=== PATIENT | male | born 1950 | race Caucasian/White ===

== ENCOUNTER 2016-11-04 15:20 | Inpatient (IN) | payer OTHER ==
[~2016-11-04] VITALS: Ht 190.5 cm; Wt 131.1 kg
[~2016-11-04 15:20] MED LIST: AMLO10TA2 PO; BETH5TAB PO; BUPR100T8 PO; BUPR200T PO; CEPH500C PO; CHOL10003 PO; CYAN10005 PO; CYCL10TA2 PO; DIVA500T9 PO; DULO60CA6 PO; FURO20TA3 PO; HYDR-2758 PO; HYDR-2869 PO; IBUP-1060 PO; LIDO30CR TP; LISI40TA PO; PROP10TA PO; SIMV40TA3 PO; TERA10CA3 PO
[2016-11-04 17:30] VITALS: BP 160/106
[2016-11-04 17:45] VITALS: BP 164/109
[2016-11-04] MEDS ORDERED: traMADol 50 MG TABLET PO PRN (18:45)
[2016-11-04] MEDS ORDERED: ACETAMINOPHEN 325 MG TABLET. PO PRN (18:45)
[2016-11-04] MEDS ORDERED: hydrALAZINE 20 MG/ML VIAL. IVP PRN (18:45)
[2016-11-04] MEDS ORDERED: ONDANSETRON PF 4 MG/2 ML VIAL. IV PRN (18:45)
[2016-11-04] MEDS ORDERED: MORPHINE SULFATE 2 MG/ML DISP.SYRIN. IV PRN (18:45)
--- NOTE | 2016-11-04 18:51 | PDOC1 ---
History and Physical Date of Admission Date of Admission 11/04/16 Identification/Chief Complaint Chief Complaint hyponatremia Problems: Source Source: Patient History of Present Illness History of Present Illness 66yo M, was sent from [facility] for [place]onatremia since [place]. [place] did[place] any records with him. [facility] he started to take chlorthalidone 2 weeks ago, the clinic monitored his Na and found it was 131, dropped to 126, and today was 121. Pt doesnot eat salt in regular food. He feels fine, denies fever, chills, sob, chest martinez, cough ,N/V, diarrhea. + chronic constipation. H/o BPH with difficulty urination, fu with uro ,last time clinic visiting was this year. Past Medical History Cardiovascular: HTN, Hyperlipidemia Pulmonary: No pertinent hx CENTRAL NERVOUS SYSTEM: Other GI: Other Heme/Onc: No pertinent hx, Other Hepatobiliary: No pertinent hx Psych: No pertinent hx Rheumatologic: No pertinent hx Infectious disease: No pertinent hx Renal/: No pertinent hx Endocrine: No pertinent hx Past Surgical History Past Surgical History 5 back sx Past Surgical History: Total knee replacement, Other Family History Family History: Cancer, Other Social History Smoke: <1 pack per day ALCOHOL: none Drugs: None Allergies Allergies Allergies Coded Allergies Type Severity Reaction Last Updated Verified No Known Drug Allergies 08/22/15 No ROS Review of System CONSTITUTIONAL: No fever or chills EYES: No recent changes SKIN: No rash or itching CARDIOVASCULAR: No chest pain, syncope, palpitations, or edema RESPIRATORY: No SOB or cough GASTROINTESTINAL: No nausea, vomiting or abdominal pain NEUROLOGICAL: No headaches or weakness ENDOCRINE: No cold or heat intolerance GENITOURINARY: No urgency or frequency of urination MUSCULOSKELETAL: No back pain or joint pain LYMPHATICS: No enlarged lymph nodes PSYCHIATRIC: No anxiety or depression Physical Exam Physical Exam GEN.: No apparent distress. Alert and oriented. HEENT: Head is normocephalic, atraumatic NECK: Supple. LUNGS: Clear to auscultation. HEART: RRR, S1, S2 present. Peripheral pulses intact ABDOMEN: Soft, nontender. Positive bowel sounds. EXTREMITIES: Without any cyanosis. NEUROLOGIC: Normal speech, normal tone PSYCHIATRIC: Normal affect, normal mood. SKIN: No ulcerations Vitals Vitals Vital Signs Date Time Temp Pulse Resp B/P (MAP) Pulse Ox O2 Delivery O2 Flow Rate FiO2 11/04/16 17:45 82 164/109 (127) 11/04/16 17:30 95.9 20 97 Room Air 95.9 VTE Prophylaxis Ordered VTE Prophylaxis Devices: Yes VTE Pharmacological Prophylaxi: Yes Assessment/Plan Assessment/Plan hyponatremia, 2/2 chlorthalidone likely, with low Salt intake PTSD CHRONIC bl upper ext tremors htn BPH h/o iron deficient anemia tobaccoism chronic back pain s/p 5 sx PAFIB not on meds obesity plan: renal consult ivf NS now labs now,. ROUtine CXR, EKG need to verify home meds, hold chlorthalidone dvt ppx PT doesnot want nicotine patch for now, which he takes at home and smokes too PERLITA VELA MD Nov 04, 2016 18:50
[2016-11-04 19:00] VITALS: BP 138/86
[2016-11-04] MEDS ORDERED: AMIT10TA PO (19:11)
[2016-11-04] MEDS ORDERED: HYDROcodone/APAP 5/325MG 1 TAB TABLET PO PRN (19:15)
[2016-11-04] MEDS ORDERED: LISI-334 PO (19:17)
[2016-11-04] MEDS ORDERED: BUPR150T20 PO (19:17)
[2016-11-04] MEDS ORDERED: FOLI1TAB16 PO (19:18)
[2016-11-04] MEDS ORDERED: METH-37 PO (19:18)
[2016-11-04] MEDS ORDERED: NIFE60TA16 PO (19:20)
[2016-11-04] MEDS ORDERED: NICO1PAT25 TP (19:21)
[2016-11-04] MEDS ORDERED: TAMS0.4C2 PO (19:22)
[2016-11-04 19:43] VITALS: BP 164/109
[2016-11-04] MEDS: IV NORMAL SALINE 1000ML BAG 1,000 ML IV SCH (20:40)
[2016-11-04] MEDS: METHOCARBAMOL 500 MG TABLET PO SCH (20:41)
[2016-11-04] MEDS: SIMVASTATIN 40 MG TABLET. PO SCH (20:41)
[2016-11-04] MEDS: NICOTINE 14MG PATCH. TD SCH (20:41)
[2016-11-04] MEDS: LISINOPRIL 20 MG TABLET PO SCH (20:42)
[2016-11-04] MEDS: AMITRIPTYLINE HCL 10 MG TABLET. PO SCH (20:42)
[2016-11-04] MEDS: CYCLOBENZAPRINE 10 MG TABLET. PO SCH (20:44)
[2016-11-04] MEDS ORDERED: TERAZOSIN 5 MG CAPSULE. PO SCH (21:00)
[2016-11-04 21:03] LABS: BASO # 0.1 x10^3/uL (0.0-0.2); BASO % 1 % (0-3); EOS % 9 % (0-3); HEMATOCRIT 33.8 % (39.0-53.0); HEMOGLOBIN 11.6 g/dL (13.0-17.5); LYMPH # 1.2 x10^3/uL (1.0-4.8); LYMPH % 13 % (24-48); MEAN CORPUSCULAR HEMOGLOBIN 33 pg (25-35); MEAN CORPUSCULAR HGB CONC 34 g/dL (31-37); MEAN CORPUSCULAR VOLUME 95 fL (79-100); MONO % 14 % (0-9); NEUT % 63 % (31-73); PLATELET COUNT 197 x10^3/uL (140-400); RED BLOOD COUNT 3.56 x10^6/uL (4.30-5.70); WHITE BLOOD COUNT 9.1 x10^3/uL (4.0-11.0)
[2016-11-04 21:14] LABS: GFR 74.5; POTASSIUM 3.5 mmol/L (3.5-5.1)
[2016-11-04] MEDS ORDERED: HYDR-2762 PO (21:19)
[2016-11-04 21:58] LABS: BARBITURATES NEG (NEG); BENZODIAZEPINES NEG (NEG); CANNABINOIDS NEG (NEG); COCAINE NEG (NEG); METHADONE NEG (NEG); OPIATES POS (NEG); PHENCYCLIDINE NEG (NEG)
--- NOTE | 2016-11-04 22:55 | EKG ---
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
[2016-11-04 23:00] VITALS: BP 140/84
--- NOTE | 2016-11-05 02:35 | ACF ---
Admission Forms Criteria HYPONATREMIA; HYPERNATREMIA; HYPOKALEMIA; HYPERKALEMIA; HYPOCALCEMIA; HYPERCALCEMIA Clinical Indications for Inpatient Care (Place 'X' for any and all applicable criteria): Ongoing inpatient care may be indicated for ANY ONE of the following [G](1)(2)(3 )(5): [X]I. Hyponatremia with ANY ONE of the following: [X]a) Sodium less than 130 mEq/L (mmol/L) (new) (6)(22) [ ]b) Sodium less than 135 mEq/L (mmol/L) with ANY ONE of the following: [ ]i) Severe medical etiology requiring inpatient management (eg, heart failure, hypovolemia) [ ]ii) Altered mental status [ ]iii) Seizures [ ]II. Hypernatremia with ANY ONE of the following: [ ]a) Sodium greater than 155 mEq/L (mmol/L) [ ]b) Sodium greater than 150 mEq/L (mmol/L) with ANY ONE of the following: [ ] i) Altered mental status [ ]ii) Seizures [ ]iii) Severe medical etiology (eg, hypovolemia, diabetes insipidus) [ ]iv) Severe weakness [ ]v) Severe medical etiology (eg, hemolysis, infection, drug overdose) [ ]III. Hypokalemia with ANY ONE of the following: [ ]a) Potassium less than 2.5 mEq/L (mmol/L) despite outpatient and emergency treatment [ ]b) Potassium less than 3.0 mEq/L (mmol/L) with ANY ONE of the following: [ ]i) Weakness [ ]ii) Cardiac abnormality (eg, arrhythmia, conduction disturbance) [ ]iii) Cardiac ischemia [ ]iv) Ileus [ ]v) Ongoing medical cause requiring inpatient management. ( e.g., acute renal wasting, SIADH) [ ]vi) Other severe symptoms [ ] IV. Hyperkalemia with ANY ONE of the following: [ ]a) Potassium greater than 6.5 mEq/L (mmol/L) [ ]b) Potassium greater than 5 mEq/L (mmol/L) with ANY ONE of the following: [ ]i) Severe ECG findings [H] [ ]ii) Acute worsening of renal failure (creatinine greater than 2.5 mg/dL (221 micromoles/L) or significant elevation for age and size) [ ] V. Hypocalcemia with ANY ONE of the following: [ ]a) Calcium less than 7 mg/dL (1.75 mmol/L) despite outpatient and emergency treatment(19) [ ]b) Calcium less than 8 mg/dL (2 mmol/L) with significant symptoms or findings; examples include: [ ]i) Cardiac abnormality (eg, arrhythmia or conduction disturbance) [ ]ii) Altered mental status [ ]iii) Seizures [ ]iv) Breathing difficulty [ ]v) Muscle spasms [ ]. Hypercalcemia with ANY ONE of the following: [ ]a) Calcium greater than 14 mg/dL (3.5 mmol/L) [ ]b) Calcium greater than 12 mg/dL (3 mmol/L) with ANY ONE of the following: [ ]i) Significant dehydration or hypovolemia as indicated by ANY ONE of the following(2): [ ]1. Clinically significant dehydration as indicated by ANY ONE of the following: [ ]A. Acute loss of weight from baseline (5% of body weight in adults, 9% in pediatric patients) [ ]B. Hemodynamic instability [ ]C. Acute renal failure [ ]D. Serum sodium greater than 150 mEq/L (mmol/L) [ ]2) Dehydration that is persistent indicated by ALL of the following: [ ]A. Oral rehydration therapy not tolerated or insufficient to adequately correct dehydration [ ]B. Appropriate intravenous treatment (eg, fluids ) does not readily correct dehydration ie, after 12 to 24 hours of treatment) [ ]ii) Significant symptoms or findings; examples include: [ ]1) Altered mental status [ ]2) Cardiac abnormality (eg, arrhythmia, conduction disturbance) [ ]3) Cardiac abnormality (eg, arrhythmia, conduction disturbance) The original [employer] content created by [employer] has been revised. The portions of the content which have been revised are identified through the use of italic text or in bold, and [facility] has neither reviewed nor approved the modified material. All other unmodified content is copyright [facility] [employer] Please see references footnoted in the original [facility] [employer] edition 2016 Admission Criteria Met?: Yes SILVANA MORALES Nov 05, 2016 02:35
[2016-11-05 03:23] VITALS: BP 151/100
[2016-11-05] MEDS: IV NORMAL SALINE 1000ML BAG 1,000 ML IV SCH ×2 (06:40→15:26)
[2016-11-05 07:00] VITALS: BP 155/112
[2016-11-05 07:30] LABS: BASO # 0.1 x10^3/uL (0.0-0.2); BASO % 1 % (0-3); EOS % 8 % (0-3); HEMATOCRIT 34.7 % (39.0-53.0); HEMOGLOBIN 11.9 g/dL (13.0-17.5); LYMPH % 11 % (24-48); MEAN CORPUSCULAR HEMOGLOBIN 33 pg (25-35); MEAN CORPUSCULAR HGB CONC 34 g/dL (31-37); MEAN CORPUSCULAR VOLUME 95 fL (79-100); MONO % 15 % (0-9); NEUT % 65 % (31-73); PLATELET COUNT 187 x10^3/uL (140-400); RED BLOOD COUNT 3.66 x10^6/uL (4.30-5.70); RED CELL DISTRIBUTION WIDTH 13.8 % (11.5-14.5); WHITE BLOOD COUNT 8.4 x10^3/uL (4.0-11.0)
[2016-11-05 07:41] LABS: CALCIUM 9.3 mg/dL (8.5-10.1); CREATININE 0.9 mg/dL (0.7-1.3); GFR 84.2; POTASSIUM 3.5 mmol/L (3.5-5.1)
--- NOTE | 2016-11-05 08:23 | RAD ---
Portable chest, 11/04/2016: History: Hyponatremia, hypertension Comparison is made to a study from 12/05/2007. There is a lesser depth of inspiration. The heart size and pulmonary vascularity are normal. No pulmonary consolidation is seen. There is no evidence of pleural fluid. IMPRESSION: No acute cardiopulmonary abnormality is detected.
[2016-11-05] MEDS: CYCLOBENZAPRINE 10 MG TABLET. PO SCH ×3 (08:30→21:16)
[2016-11-05] MEDS: DULoxetine HCL 30 MG CAPSULE.DR PO SCH (08:31)
[2016-11-05] MEDS: BETHANECHOL CHLORIDE 10 MG TABLET. PO SCH ×3 (08:32→15:26)
[2016-11-05] MEDS: METHOCARBAMOL 500 MG TABLET PO SCH ×3 (08:32→21:16)
[2016-11-05] MEDS: CYANOCOBALAMIN (VITAMIN B-12) 1,000 MCG TABLET. PO SCH (08:32)
[2016-11-05] MEDS: DIVALPROEX DELAYED RELEASE 500 MG TABLET.DR. PO SCH (08:32)
[2016-11-05] MEDS: FOLIC ACID 1 MG TABLET. PO SCH (08:32)
[2016-11-05] MEDS: CHOLECALCIFEROL (VITAMIN D3) 1,000 UNIT TABLET PO SCH (08:32)
[2016-11-05] MEDS: TAMSULOSIN 0.4 MG CAP.ER.24H. PO SCH (08:32)
[2016-11-05] MEDS: NICOTINE 14MG PATCH. TD SCH (08:33)
[2016-11-05] MEDS: ENOXAPARIN 40 MG/0.4 ML SYRINGE. SQ SCH (08:33)
[2016-11-05] MEDS: LISINOPRIL 20 MG TABLET PO SCH ×2 (08:43→21:16)
[2016-11-05] MEDS: HYDROcodone/APAP 7.5/325MG 1 TAB TABLET PO PRN ×2 (08:43→21:17)
[2016-11-05] MEDS: amLODIPine BESYLATE 10 MG TABLET PO SCH (08:43)
[2016-11-05] MEDS: PROPRANOLOL 10 MG TABLET. PO SCH (08:44)
[2016-11-05] MEDS ORDERED: FUROSEMIDE 20 MG TABLET PO SCH (09:00)
--- NOTE | 2016-11-05 10:37 | PDOC ---
PROGRESS NOTES Chief Complaint Chief Complaint [facility] ASSESSMENT AND PLAN: 1. Hyponatremia: 2/2 chlorthalidone that was recently started. continues to improve, but not close to normal range yet. cont IVF 2. HTN : well controlled on home lisinopril, norvasc, hydralazine 3. pAfib: on dilt., continue. no OAC on O/P basis (?) 4. Tremors: ? familial. on propranolol 5. Anemia: hx iron deficiency, currently on folate. stable. F/U with PCP 6. BPH: cont home regimen 7. Chronic LBP: cont home regimen 8. PTSD: continue home meds 9. tobaccoism: declines patch. obtain CT for annual lung CA screening 10. obesity (BMI3 36): nutrition consult History of Present Illness History of Present Illness no c/o. feels "normal" Vitals Vitals Vital Signs Date Time Temp Pulse Resp B/P (MAP) Pulse Ox O2 Delivery O2 Flow Rate FiO2 11/05/16 08:44 88 155/112 11/05/16 08:43 98 Room Air 11/05/16 07:00 97.8 20 97.8 Physical Exam Lungs: Clear Labs LABS Laboratory Tests Test 11/04/16 20:30 11/04/16 21:00 11/05/16 07:05 White Blood Count 9.1 x10^3/uL (4.0-11.0) 8.4 x10^3/uL (4.0-11.0) Red Blood Count 3.56 x10^6/uL (4.30-5.70) 3.66 x10^6/uL (4.30-5.70) Hemoglobin 11.6 g/dL (13.0-17.5) 11.9 g/dL (13.0-17.5) Hematocrit 33.8 % (39.0-53.0) 34.7 % (39.0-53.0) Mean Corpuscular Volume 95 fL (79-100) 95 fL (79-100) Mean Corpuscular Hemoglobin 33 pg (25-35) 33 pg (25-35) Mean Corpuscular Hemoglobin Concent 34 g/dL (31-37) 34 g/dL (31-37) Red Cell Distribution Width 14.0 % (11.5-14.5) 13.8 % (11.5-14.5) Platelet Count 197 x10^3/uL (140-400) 187 x10^3/uL (140-400) Neutrophils (%) (Auto) 63 % (31-73) 65 % (31-73) Lymphocytes (%) (Auto) 13 % (24-48) 11 % (24-48) Monocytes (%) (Auto) 14 % (0-9) 15 % (0-9) Eosinophils (%) (Auto) 9 % (0-3) 8 % (0-3) Basophils (%) (Auto) 1 % (0-3) 1 % (0-3) Neutrophils # (Auto) 5.8 x10^3uL (1.8-7.7) 5.4 x10^3uL (1.8-7.7) Lymphocytes # (Auto) 1.2 x10^3/uL (1.0-4.8) 1.0 x10^3/uL (1.0-4.8) Monocytes # (Auto) 1.3 x10^3/uL (0.0-1.1) 1.3 x10^3/uL (0.0-1.1) Eosinophils # (Auto) 0.8 x10^3/uL (0.0-0.7) 0.7 x10^3/uL (0.0-0.7) Basophils # (Auto) 0.1 x10^3/uL (0.0-0.2) 0.1 x10^3/uL (0.0-0.2) Sodium Level 127 mmol/L (136-145) 129 mmol/L (136-145) Potassium Level 3.5 mmol/L (3.5-5.1) 3.5 mmol/L (3.5-5.1) Chloride Level 91 mmol/L (98-107) 93 mmol/L (98-107) Carbon Dioxide Level 31 mmol/L (21-32) 26 mmol/L (21-32) Anion Gap 5 (6-14) 10 (6-14) Blood Urea Nitrogen 16 mg/dL (8-26) 12 mg/dL (8-26) Creatinine 1.0 mg/dL (0.7-1.3) 0.9 mg/dL (0.7-1.3) Estimated GFR (Cockcroft-Gault) 74.5 84.2 Glucose Level 100 mg/dL (70-99) 103 mg/dL (70-99) Calcium Level 9.0 mg/dL (8.5-10.1) 9.3 mg/dL (8.5-10.1) Urine Opiates Screen Pos (NEG) Urine Methadone Screen Neg (NEG) Urine Barbiturates Neg (NEG) Urine Phencyclidine Screen Neg (NEG) Urine Amphetamine/Methamphetamine Neg (NEG) Urine Benzodiazepines Screen Neg (NEG) Urine Cocaine Screen Neg (NEG) Urine Cannabinoids Screen Neg (NEG) Urine Ethyl Alcohol Neg (NEG) BLAZE OQUENDO MD Nov 05, 2016 10:37
[2016-11-05 11:00] VITALS: BP 128/84
[2016-11-05 15:21] VITALS: BP 116/69
[2016-11-05] MEDS: DOCUSATE SODIUM 100 MG CAPSULE. PO PRN (18:38)
[2016-11-05 19:25] VITALS: BP 143/82
[2016-11-05] MEDS: AMITRIPTYLINE HCL 10 MG TABLET. PO SCH (21:16)
[2016-11-05] MEDS: SIMVASTATIN 40 MG TABLET. PO SCH (21:16)
[2016-11-05 23:10] VITALS: BP 125/74
[2016-11-06] MEDS: IV NORMAL SALINE 1000ML BAG 1,000 ML IV SCH ×2 (02:00→11:28)
[2016-11-06 03:04] VITALS: BP 154/92
[2016-11-06 05:15] LABS: BASO # 0.1 x10^3/uL (0.0-0.2); BASO % 1 % (0-3); EOS % 9 % (0-3); HEMATOCRIT 30.1 % (39.0-53.0); HEMOGLOBIN 10.5 g/dL (13.0-17.5); LYMPH # 1.1 x10^3/uL (1.0-4.8); LYMPH % 16 % (24-48); MEAN CORPUSCULAR HEMOGLOBIN 33 pg (25-35); MEAN CORPUSCULAR HGB CONC 35 g/dL (31-37); MEAN CORPUSCULAR VOLUME 93 fL (79-100); MONO % 16 % (0-9); NEUT % 59 % (31-73); PLATELET COUNT 175 x10^3/uL (140-400); RED BLOOD COUNT 3.23 x10^6/uL (4.30-5.70); RED CELL DISTRIBUTION WIDTH 13.8 % (11.5-14.5)
[2016-11-06 05:21] LABS: CALCIUM 8.6 mg/dL (8.5-10.1); CREATININE 0.8 mg/dL (0.7-1.3); GFR 96.4
[2016-11-06 07:00] VITALS: BP 158/91
[2016-11-06] MEDS: HYDROcodone/APAP 7.5/325MG 1 TAB TABLET PO PRN (08:11)
[2016-11-06] MEDS: PROPRANOLOL 10 MG TABLET. PO SCH (08:11)
[2016-11-06] MEDS: DULoxetine HCL 30 MG CAPSULE.DR PO SCH (08:12)
[2016-11-06] MEDS: CYCLOBENZAPRINE 10 MG TABLET. PO SCH ×2 (08:12→14:38)
[2016-11-06] MEDS: METHOCARBAMOL 500 MG TABLET PO SCH ×2 (08:12→14:38)
[2016-11-06] MEDS: CHOLECALCIFEROL (VITAMIN D3) 1,000 UNIT TABLET PO SCH (08:12)
[2016-11-06] MEDS: BETHANECHOL CHLORIDE 10 MG TABLET. PO SCH ×2 (08:13→11:27)
[2016-11-06] MEDS: amLODIPine BESYLATE 10 MG TABLET PO SCH (08:13)
[2016-11-06] MEDS: LISINOPRIL 20 MG TABLET PO SCH (08:13)
[2016-11-06] MEDS: FOLIC ACID 1 MG TABLET. PO SCH (08:13)
[2016-11-06] MEDS: TAMSULOSIN 0.4 MG CAP.ER.24H. PO SCH (08:13)
[2016-11-06] MEDS: DIVALPROEX DELAYED RELEASE 500 MG TABLET.DR. PO SCH (08:14)
[2016-11-06] MEDS: NICOTINE 14MG PATCH. TD SCH (08:14)
[2016-11-06] MEDS: CYANOCOBALAMIN (VITAMIN B-12) 1,000 MCG TABLET. PO SCH (08:14)
[2016-11-06] MEDS: ENOXAPARIN 40 MG/0.4 ML SYRINGE. SQ SCH (08:15)
[2016-11-06 11:00] VITALS: BP 125/79
--- NOTE | 2016-11-06 12:06 | RAD ---
Indication chest pain. Hyponatremia. Noncontrast images through the chest were obtained. No prior CT imaging of the chest is available. Imaging through the upper abdomen demonstrates a low-density 2.6 cm mass associated with the right kidney most compatible with a cyst. There is a low-density 2 cm mass associated with the right adrenal gland. Hounsfield unit numbers are less than 10 and it is most consistent with a benign adenoma. No acute or definite significant finding in the upper abdomen is seen. There are significant degenerative changes in the upper lumbar spine. There are several right rib fractures most of which are probably old. Clinical correlation advised. There is some coronary artery calcification. A few mediastinal lymph nodes are noted. These are very doubtful clinical significance. There is no significant hilar adenopathy. There are groundglass opacities in the upper lobes left more so than right. The etiology is unclear. Some of this could be chronic. Hypersensitivity phenomenon associated with these groundglass opacities is not excluded. Underlying infection is not excluded. A dominant soft tissue mass in either lung is not seen. IMPRESSION: No dominant soft tissue mass seen in either lung. Groundglass opacities, nonspecific, in the upper lobes left greater than right. PQRS Compliance Statement: One or more of the following individualized dose reduction techniques were utilized for this examination: 1. Automated exposure control 2. Adjustment of the mA and/or kV according to patient size 3. Use of iterative reconstruction technique
--- NOTE | 2016-11-06 13:56 | PDOC3 ---
Discharge Summary [facility] Date of Admission: Nov 04, 2016 Discharge Date: Nov 06, 2016 Admitting Diagnosis hyponatremia, 2/2 chlorthalidone likely, with low Salt intake PTSD CHRONIC bl upper ext tremors post back sx htn BPH h/o iron deficient anemia tobaccoism chronic back pain s/p 5 sx PAFIB not on meds obesity Problems: Brief Hospital Course 66yo M, was sent from [place] [facility] for [place]at[place] since [place] has no bed for him. [place] did[place] send any records with him. [facility], he started to take chlorthalidone 2 weeks ago, the clinic monitored his Na and found it was 131, dropped to 126, and today was 121. Pt doesnot eat salt in regular food. He feels fine, denies fever, chills, sob, chest martinez, cough ,N/V, diarrhea. + chronic constipation. H/o BPH with difficulty urination, fu with uro ,last time clinic visiting was this year. repeated BMP here 127, today [address] chest not significant. dc home wo chlorthalidone dc time 35min. GEN.: No apparent distress. Alert and oriented. HEENT: Head is normocephalic, atraumatic NECK: Supple. LUNGS: Clear to auscultation. HEART: RRR, S1, S2 present. Peripheral pulses intact ABDOMEN: Soft, nontender. Positive bowel sounds. EXTREMITIES: Without any cyanosis. NEUROLOGIC: Normal speech, normal tone PSYCHIATRIC: Normal affect, normal mood. SKIN: No ulcerations Patient History: FH: breast cancer 32 MOTHER, Onset:Unknown Unknown 33 FATHER, Problems: Disposition home CONDITION AT DISCHARGE: Improved Diet cardiac Scheduled Amitriptyline Hcl (Amitriptyline Hcl), 1 TAB PO QHS, (Reported) Amlodipine Besylate (Amlodipine Besylate), 10 MG PO DAILY, (Reported) Bethanechol Chloride (Bethanechol Chloride), 5 MG PO TID, (Reported) Cyclobenzaprine Hcl (Cyclobenzaprine Hcl), 10 MG PO TID, (Reported) Divalproex Sodium (Divalproex Sodium), 500 MG PO DAILY, (Reported) Duloxetine Hcl (Cymbalta), 60 MG PO DAILY, (Reported) Folic Acid (Folic Acid), 1 TAB PO DAILY, (Reported) Furosemide (Furosemide), 20 MG PO DAILY, (Reported) Hydralazine Hcl (Hydralazine Hcl), 1 TAB PO BID, (Reported) Lisinopril (Lisinopril), 1 TAB PO BID, (Reported) Methocarbamol (Robaxin), 1 TAB PO TID, (Reported) Nicotine (NICODERM CQ 14mg), 1 PATCH TP DAILY, (Reported) Nifedipine (Nifedipine Er), 1 TAB PO HS, (Reported) Propranolol Hcl (Propranolol Hcl), 10 MG PO DAILY, (Reported) Simvastatin (Simvastatin), 40 MG PO DAILY, (Reported) Tamsulosin Hcl (Tamsulosin Hcl), 2 CAP PO DAILY, (Reported) Terazosin Hcl (Terazosin Hcl), 10 MG PO HS, (Reported) Scheduled PRN Hydrocodone Bit/Acetaminophen (Hydrocodone-Apap 7.5-325 ), 2 TAB PO BID PRN for PAIN, (Reported) Miscellaneous Medications Bupropion Hcl (Bupropion Hcl Sr), 150 MG PO, (Reported) Cholecalciferol (Vitamin D3) (Vitamin D3), 1,000 UNIT PO, (Reported) Cyanocobalamin (Vitamin B-12) (Vitamin B-12), 1,000 MCG PO, (Reported) Discontinued Medications Bupropion Hcl (Bupropion Hcl Sr), 1 TAB PO [id number], (Reported) Discontinued Reason: Prescription changed Bupropion Hcl (Bupropion Hcl Sr), 1 TAB PO [id number], (Reported) Hydrocodone Bit/Acetaminophen (Hydrocodone-Apap 5-325 ), 1 TAB PO PRN Q6HRS PRN for PAIN, (Reported) Lisinopril (Lisinopril), 40 MG PO DAILY, (Reported) Follow Up pcp in 2 weeks PERLITA VELA MD Nov 06, 2016 13:56
[2016-11-06] MEDS: DOCUSATE SODIUM 100 MG CAPSULE. PO PRN (14:40)
[2016-11-06 15:00] VITALS: BP 117/68
== END 2016-11-06 16:00 | disposition home or self-care (01) | DRG 641 ==
LOC: 4 NORTH 17:35
PROVIDERS: ADMIT Internal Medicine; ATTEND Internal Medicine
DX: E87.1 Hypo-osmolality and hyponatremia (principal); I10 Essential (primary) hypertension; E78.5 Hyperlipidemia, unspecified; E66.9 Obesity, unspecified; F17.210 Nicotine dependence, cigarettes, uncomplicated; F43.10 Post-traumatic stress disorder, unspecified; G89.29 Other chronic pain; M54.5 Low back pain; K59.09 Other constipation; I48.0 Paroxysmal atrial fibrillation; N40.0 Benign prostatic hyperplasia without lower urinary tract symptoms; R25.1 Tremor, unspecified; D50.9 Iron deficiency anemia, unspecified; T50.2X5A Adverse effect of carbonic-anhydrase inhibitors, benzothiadiazides and other diuretics, initial encounter; Z96.659 Presence of unspecified artificial knee joint; Y92.89 Other specified places as the place of occurrence of the external cause; Z80.3 Family history of malignant neoplasm of breast; Z68.36 Body mass index [BMI] 36.0-36.9, adult
CPT/HCPCS: 36415; 71010; 71250; 80048; 80307; 85027; 93005; J1650; J7030; G0479